=== PATIENT | male | born 1990 | race American Indian/Alaskan Native ===

== ENCOUNTER 2017-10-10 08:49 | Emergency (ER) | payer OTHER ==
[2017-10-10 08:57] VITALS: BP 124/76
[2017-10-10] MEDS ORDERED: TRIPLE ANTIBIOTIC TP ONE ×2 (11:03→11:08)
--- NOTE | 2017-10-10 11:22 | Emergency Department Report ---
ED Laceration HPI - HPI Chief Complaint: Extremity Injury, Upper Stated Complaint: CUT ON HAND Time Seen by Provider: 10/10/17 10:25 Severity: moderate Tetanus Status: Up to Date (received last 2016) Laceration Symptoms: Yes Pain, No Foreign Body Sensation, No Numbness, No Weakness Other History: Patient is a 27-year-old male presents to ED with a laceration to the right palm that he sustained a week ago. Patient states he was cut by a metal pole while he was shot or reach for it. Patient states he is being cleaning the wound and dressing it with Neosporin, and cleaning it. Patient states today he went to pain at this Thinking its healed and the wound open back up ED Review of Systems ROS: Stated complaint: CUT ON HAND Other details as noted in HPI Constitutional: denies: chills, fever Eyes: denies: eye pain, eye discharge, vision change ENT: denies: ear pain, throat pain Respiratory: denies: cough, shortness of breath, wheezing Cardiovascular: denies: chest pain, palpitations Endocrine: no symptoms reported Gastrointestinal: denies: abdominal pain, nausea, diarrhea Genitourinary: denies: urgency, dysuria Musculoskeletal: denies: back pain, joint swelling, arthralgia Skin: denies: rash, lesions Neurological: denies: headache, weakness, paresthesias Psychiatric: denies: anxiety, depression Hematological/Lymphatic: denies: easy bleeding, easy bruising ED Past Medical Hx - Past Medical History Previous Medical History?: No - Surgical History Past Surgical History?: No - Social History Smoking Status: Current Every Day Smoker Substance Use Type: Alcohol, Marijuana - Medications Home Medications: Home Medications Medication Instructions Recorded Confirmed Last Taken Type Cephalexin [Keflex] 500 mg PO BID #10 capsule 10/10/17 Unknown Rx Ibuprofen [Motrin] 800 mg PO Q8HR PRN #30 tablet 10/10/17 Unknown Rx Neomycin/Bacitracin/Polymyxinb 1 applic TP TID #1 tube 10/10/17 Unknown Rx [Triple Antibiotic Ointment] Laceration Physical Exam - Exam General: Vital signs noted. No distress. Alert and acting appropriately. HAND: Right middle Palm moderately heavily C-shaped laceration, mildly tender to palpation Radial pulses present 2+ bilaterally, no acute bleeding Laceration Location: Upper Extremity (right center of palm,) Laceration Exam: Yes Normal Distal CMS, No Foreign Body, No Exposed Tendon, Vessel, or Nerve, No Tendon Injury ED Course Vital Signs 10/10/17 08:54 Temperature 98.7 F Pulse Rate 78 Respiratory 18 Rate Blood Pressure 124/76 O2 Sat by Pulse 98 Oximetry ED Medical Decision Making - Medical Decision Making 27-year-old male presents with healing laceration to the right palm ED course: wound was cleaned and topical triple antibiotic was applied with sterile dressing I discuss acute care with patien I discussed with the patient to follow-up with his primary care physician. I discussed antibiotic therapy for bacterial prophylaxis. I discussed with the patient daily change in keeping the wound dry. Assessment normal patient is in no acute distress Critical care attestation.: If time is entered above; I have spent that time in minutes in the direct care of this critically ill patient, excluding procedure time. ED Disposition Clinical Impression: Open wound of finger of right hand Qualifiers: Encounter type: initial encounter Qualified Code(s): S61.209A - Unspecified open wound of unspecified finger without damage to nail, initial encounter Laceration of palm without complication Qualifiers: Encounter type: initial encounter Laterality: right Qualified Code(s): S61.411A - Laceration without foreign body of right hand, initial encounter Disposition: DC-01 TO HOME OR SELFCARE Is pt being admited?: No Does the pt Need Aspirin: No Condition: Stable Instructions: Laceration (ED), Acute Wound Care (ED) Additional Instructions: Make sure to follow up with the primary care physician as discussed. Take all your medications as you've been prescribed. If you have any worsening symptoms or develop new symptoms please return to ED immediately. Prescriptions: Cephalexin [Keflex] 500 mg PO BID #10 capsule Ibuprofen [Motrin] 800 mg PO Q8HR PRN #30 tablet PRN Reason: Pain Neomycin/Bacitracin/Polymyxinb [Triple Antibiotic Ointment] 1 applic TP TID #1 tube Referrals: YUDY JARQUIN MD [Primary Care Provider] - 3-5 Days [facility] [Outside] - 3-5 Days [facility] [Outside] - 3-5 Days Forms: Work/School Release Form(ED) Time of Disposition: 11:29
== END 2017-10-10 11:38 | disposition home or self-care (01) ==
LOC: ED 08:49
DX: S61.411A Laceration without foreign body of right hand, initial encounter (principal); S61.209A Unspecified open wound of unspecified finger without damage to nail, initial encounter; W45.8XXA Other foreign body or object entering through skin, initial encounter; Y93.89 Activity, other specified; Y92.89 Other specified places as the place of occurrence of the external cause; Y99.8 Other external cause status
CPT/HCPCS: 99282; A6250